=== PATIENT | female | born 1970 | race Caucasian/White ===

== ENCOUNTER 2020-08-15 10:14 | Outpatient (REF) | payer BC, SELFPAY | END 2020-08-15 10:15 | disposition home or self-care (01) | LOC: HO.LAB 10:14 | PROVIDERS: Visit Provider Internal Medicine | DX: Z20.828 Contact with and (suspected) exposure to other viral communicable diseases (principal) | CPT/HCPCS: C9803; U0003 ==

== ENCOUNTER 2021-05-04 10:22 | Outpatient (REF) | payer BC, SELFPAY ==
--- NOTE | ~2021-05-04 | US_ITS ---
EXAMINATION: ULTRASOUND EXTREMITY NONVASCULAR. CLINICAL INFORMATION: 4 x 2 cm mass times one year, status post fall down stairs. Question cysts versus tumor. COMPARISON: None TECHNIQUE: Limited imaging through the right upper buttock was performed. FINDINGS: There is a complex cystic but firm lesion overlying the right buttock approximately 1.09 cm deep to the skin and above the muscle fascia. It measures 3.07 x 5.28 x 1.67 cm and has internal echogenic strands. Due to chronicity this may represent an large granuloma, old hematoma or a complex lipoma. US/US extremity nonvascular IMPRESSION: Solid lesion right upper buttock as described above. Question old hematoma, granuloma or a complex lipoma. Simple fine-needle aspiration or biopsy can be performed by ultrasound.
== END 2021-05-04 10:23 | disposition home or self-care (01) ==
LOC: HO.HMGCX 10:22
PROVIDERS: PCP Internal Medicine; Visit Provider Registered Nurse
DX: R22.41 Localized swelling, mass and lump, right lower limb (principal)
CPT/HCPCS: 76882

== ENCOUNTER 2021-07-20 12:11 | Outpatient (REF) | payer BC, SELFPAY ==
--- NOTE | ~2021-07-20 | MM_ITS ---
EXAMINATION: MM SCREENING DIGITAL BREAST TOMOSYNTHESIS, BILATERAL CLINICAL INFORMATION: Screening. Asymptomatic. The lifetime risk of breast cancer based on the Tyrer-Cuzick Model is 7%. COMPARISON: Mammography: 05/09/2020, 05/07/2019, 05/05/2018 TECHNIQUE: Digital breast tomosynthesis is performed in both the craniocaudal and mediolateral oblique views along with computer-aided detection (CAD). Synthesized 2D images are generated from the tomosynthesis. FINDINGS: There are scattered areas of fibroglandular density (ACR BI-RADS breast composition Category b). There are no significant masses, abnormal calcifications, or other abnormalities. Parenchymal pattern is similar to prior study. No significant changes. MM/MM tomosynthesis screening BI IMPRESSION: No mammographic evidence of malignancy. ASSESSMENT: BI-RADS 1: Negative RECOMMENDATION: Routine annual mammography screening. This patient's information was entered into a reminder system with a target due date for their next mammogram.
== END 2021-07-20 12:12 | disposition home or self-care (01) ==
LOC: HO.MAMMO 12:11
PROVIDERS: PCP Internal Medicine; Visit Provider Internal Medicine
DX: Z12.13 Encounter for screening for malignant neoplasm of small intestine (principal)
CPT/HCPCS: 77063; 77067

== ENCOUNTER 2022-01-03 12:58 | Outpatient (REF) | payer BC, SELFPAY ==
--- NOTE | ~2022-01-03 | XR_ITS ---
EXAMINATION: XR SHOULDER, RIGHT CLINICAL INFORMATION: Pain and swelling right shoulder COMPARISON: Radiographs right shoulder 09/09/2019 TECHNIQUE: The right shoulder is imaged in 4 views. FINDINGS: There is bulky calcific tendinosis involving the distal superior rotator cuff, increased from prior exam 2019. The calcification measures approximately 6 mm in thickness, 2 cm across, and 2 cm AP dimension. There is no fracture, dislocation, or destructive process. The acromioclavicular alignment is normal. The glenohumeral joint appears normal. XR/XR shoulder RT min 2V IMPRESSION: Bulky calcific tendinosis distal superior rotator cuff.
== END 2022-01-03 12:59 | disposition home or self-care (01) ==
LOC: HO.HMGCX 12:58
PROVIDERS: PCP Internal Medicine; Visit Provider Internal Medicine
DX: M25.511 Pain in right shoulder (principal); M25.411 Effusion, right shoulder
CPT/HCPCS: 73030

== ENCOUNTER 2022-06-28 23:58 | Emergency (ER) | payer BC, SELFPAY ==
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
--- NOTE | ~2022-06-28 | CT_ITS ---
EXAMINATION: CT ABDOMEN AND PELVIS WITH CONTRAST CLINICAL INFORMATION: Right upper quadrant and right flank pain/tenderness. COMPARISON: Abdominal ultrasound dated from 05/19/2018. TECHNIQUE: Multidetector volumetric images were obtained from the superior aspect of the liver through the pubic symphysis following administration 85 mL of Omnipaque 350 intravenous contrast. Sagittal and coronal reformatted images were obtained on the technologist's workstation. Oral contrast: No This CT examination was performed using dose optimization techniques as appropriate, variously including the following: *Automated exposure control *Adjustment of mA and/or kV according to patient size (this includes techniques or standardized protocols for targeted exams where dose is matched to indication/reason for exam; i.e. extremities or head) *Use of iterative reconstruction technique DLP: 452 mGy-cm FINDINGS: LUNG BASES: No focal consolidation or pleural effusion. LIVER, GALLBLADDER, AND BILIARY TREE: The liver measures 16.2 cm craniocaudally and demonstrates normal attenuation and shape. There is a 2.7 cm enhancing lesion in the periphery of the right hepatic lobe (5:24), corresponding to a heterogeneously hyperechoic mass noted on an ultrasound from 05/19/2018. There is an additional very subtle enhancing observation in the right hepatic lobe measuring approximately 8 mm (5:14). There are couple of too small to characterize hypodensities, one demonstrating a peripheral enhancing nodule in the right hepatic dome (9:54). Normal gallbladder. No biliary ductal dilatation. PANCREAS: Unremarkable. SPLEEN: Unremarkable. ADRENAL GLANDS: Unremarkable. KIDNEYS AND URETERS: The kidneys are normal in size, shape, and attenuation. No hydronephrosis, hydroureter, or calculi seen. No perinephric stranding. BLADDER: Unremarkable. GASTROINTESTINAL TRACT: The small and large bowel are unremarkable. Normal appendix (5:63). ABDOMINAL WALL: Lower anterior abdominal wall fat stranding. There is a 4.1 cm fat-containing observation in the soft tissues of the right gluteal region, likely fat necrosis as sequela of prior trauma. LYMPH NODES: No lymphadenopathy by size criteria. VASCULAR: Mild atherosclerotic disease. Abdominal aorta is of normal diameter. The main portal vein is patent. PELVIC VISCERA: Very heterogeneous uterine myometrium with asymmetric bulging and distortion along the anterior surface of the uterine body (sagittal image 53, series 10). There is also some degree of heterogeneity and fullness in the cervix and vagina. A couple of low density lesions projecting over the cervix, largest measuring 1.4 cm, likely representing nabothian cysts. No free fluid. OSSEOUS STRUCTURES: No acute or aggressive-appearing osseous abnormalities. CT/CT abdomen pelvis w IV con IMPRESSION: Nonspecific heterogeneity of the uterus, cervix and vagina with bulging along the anterior uterine body. There is some degree of fat stranding adjacent to the anterior surface of the upper uterus and in the lower anterior abdominal wall. Findings are nonspecific, recommend clinical correlation. The heterogeneity of the uterus is likely in part explained by the presence of numerous fibroids. The distortion along the anterior surface and lower abdominal wall might be related with prior surgery. There are several enhancing and also hypoattenuating liver lesions, some of which are too small to characterize, largest lesion measures 2.7 cm corresponding to a heterogeneously hyperechoic observation noted in a prior ultrasound from 2018 and not convincingly changed. These likely correspond to a combination of cysts and hemangiomas, however further characterization with an elective abdominal MRI with and without intravenous contrast is recommended to ensure the benign nature of these lesions. This result was discussed with Leland Gannon MD at 06/29/2022 9:24 AM and it was ascertained that the content of the report was understood at the time of direct communication.
[2022-06-29 00:14] VITALS: BP 145/88; PULSE 108; O2SAT 98
[2022-06-29 00:44] VITALS: BP 137/92; PULSE 94; RESP 18; TEMP 36.8; O2SAT 98; BMI 24.5
[2022-06-29] MEDS: Acetaminophen 325 MG TABLET 650 MG PO ×2 (00:53→09:45)
--- NOTE | 2022-06-29 01:22 | PC.NURSE ---
RN cleansed posterior head lac with NS and dressed the area with a non-adherent gauze, covered with an ABD pad and wrapped in kerlex.
[2022-06-29 07:39] LABS: MANUAL DIFF FLAG NO
[2022-06-29 07:43] LABS: Basophils Percent Auto 0.4 % (0-2); Eosinophils Absolute Auto 0.1 X10*3/uL (0.0-0.4); Eosinophils Percent Auto 0.5 % (0-4); Hematocrit 43.1 % (37.0-47.0); Imm Gran Abs Auto 0.03 X10*3/uL (0.00-0.03); Imm Gran Pct Auto 0.3 % (0.0-0.4); Lymphocytes Absolute Auto 1.7 X10*3/uL (1.2-4.9); Lymphocytes Percent Auto 15.4 % (20-40); Mean Corpuscular HGB Conc 32.5 g/dl (31.0-35.0); Mean Corpuscular Hemoglobin 29.3 pg (27.0-33.0); Mean Corpuscular Volume 90.2 fL (80.0-98.0); Mean Platelet Volume 9.9 fL (9.4-12.3); Monocytes Absolute Auto 0.8 X10*3/uL (0.1-1.2); Monocytes Percent Auto 7.5 % (2-11); Neutrophils Absolute Auto 8.5 x10*3/uL (2.0-8.3); Neutrophils Percent Auto 75.9 % (45-73); Platelet Count 271 X10*3/uL (160-400); Red Blood Count 4.78 X10*6/uL (4.20-5.50); Red Cell Distribution Width 14.7 % (11.0-16.0); White Blood Count 11.2 X10*3/uL (4.8-10.8)
[2022-06-29 07:53] LABS: Appearance Urine Clear; Color Urine Yellow; Glucose Urine UA Negative (Negative); Leukocyte Esterase Urine Negative (Negative); Nitrite Urine Negative (Negative); PH 6.5 (5.0-9.0); UMIC TRIGGER UACC YES; Urine Blood Trace (Negative); Urine Ketones Negative (Negative); Urine Protein Negative (Neg-Trace)
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
[2022-06-29 07:58] LABS: Bacteria Urine None Seen (None Seen); Hyaline Casts Urine 0-2 /LPF (0-2); RBC Urine 0-2 /HPF (0-2); Squamous Epithelial Cell Urine 0-2 /HPF (0-2); WBC Urine 0-5 /HPF (0-5)
[2022-06-29 08:08] LABS: Alanine Aminotransferase 20 U/L (0-31); Albumin Level 5.3 g/dL (3.5-5.0); Alkaline Phosphatase 63 U/L (39-117); Anion Gap 22 (12-20); Aspartate Amino Transferase 33 U/L (5-31); Bilirubin Total 0.4 mg/dL (0.0-1.0); Blood Urea Nitrogen 9 mg/dL (9-16); Calcium 9.7 mg/dL (8.4-10.2); Carbon Dioxide 19 mmol/L (22-29); Chloride 104 mmol/L (96-108); Creatinine Clr Calc Pharmacy 82.5; Estimated Glomerular Filt Rate > 60; Glucose Random 83 mg/dL (60-115); Potassium 4.7 mmol/L (3.3-5.1); Sodium 140 mmol/L (135-145); Total Protein 8.4 g/dL (6.5-8.0)
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
[2022-06-29] MEDS: iohexoL 350 MG/ML 100 ML INFUS..BTL 85 ML IV (08:26)
[2022-06-29] MEDS: Lidocaine HCl 2%/Epi 1:100,000 20 ML VIAL INFILTRATI (09:45)
[2022-06-29] MEDS: ondansetron HCL 4 MG/2 ML VIAL IVPUSH (09:45)
== END 2022-06-29 11:50 | disposition home or self-care (01) ==
PROVIDERS: Emergency Provider Emergency Medicine; PCP Internal Medicine
DX: S01.01XA Laceration without foreign body of scalp, initial encounter (principal); S06.0X0A Concussion without loss of consciousness, initial encounter; S20.211A Contusion of right front wall of thorax, initial encounter; Y04.2XXA Assault by strike against or bumped into by another person, initial encounter; D25.9 Leiomyoma of uterus, unspecified; R10.11 Right upper quadrant pain; Y93.89 Activity, other specified; Y92.019 Unspecified place in single-family (private) house as the place of occurrence of the external cause; Y99.9 Unspecified external cause status
CPT/HCPCS: 12001; 36415; 70450; 74177; 80053; 81001; 85025; 96374; 99284; J2405; Q9967

== ENCOUNTER 2022-08-07 07:28 | Outpatient (REF) | payer BC, SELFPAY ==
--- NOTE | ~2022-08-07 | MM_ITS ---
EXAMINATION: MM SCREENING DIGITAL BREAST TOMOSYNTHESIS, BILATERAL CLINICAL INFORMATION: Screening. Asymptomatic. The lifetime risk of breast cancer based on the Tyrer-Cuzick Model is 7.1%. COMPARISON: Mammography: July 20, 2021 and studies dating back to March 07, 2016 TECHNIQUE: Digital breast tomosynthesis is performed in both the craniocaudal and mediolateral oblique views along with computer-aided detection (CAD). Synthesized 2D images are generated from the tomosynthesis. FINDINGS: The breasts are heterogeneously dense, which may obscure small masses (ACR BI-RADS breast composition Category c). There are no significant masses, abnormal calcifications, or other abnormalities. MM/MM tomosynthesis screening BI IMPRESSION: No significant changes from prior exam. ASSESSMENT: BI-RADS 1: Negative RECOMMENDATION: Routine annual mammography screening. This patient's information was entered into a reminder system with a target due date for their next mammogram.
== END 2022-08-07 07:29 | disposition home or self-care (01) ==
LOC: HO.MAMMO 07:28
PROVIDERS: Absent Provider Nurse Practitioner Adult Health; PCP Internal Medicine; Visit Provider Internal Medicine
DX: Z12.31 Encounter for screening mammogram for malignant neoplasm of breast (principal)
CPT/HCPCS: 77063; 77067

== ENCOUNTER → 2022-09-06 12:39 | Outpatient (BNVA) | payer BC, SELFPAY | PROVIDERS: PCP Internal Medicine; Visit Provider Physician Assistant | DX: M75.31 Calcific tendinitis of right shoulder (principal) | CPT/HCPCS: 20610; J1040 ==

== ENCOUNTER → 2023-01-04 10:41 | Outpatient (BNVA) | payer BC, SELFPAY | PROVIDERS: PCP Internal Medicine; Visit Provider Physician Assistant | DX: M75.31 Calcific tendinitis of right shoulder (principal) | CPT/HCPCS: 20610; J1040 ==

== ENCOUNTER 2023-02-04 14:54 | Outpatient (REF) | payer BC, SELFPAY ==
--- NOTE | ~2023-02-04 | MR_ITS ---
EXAMINATION: MR SHOULDER WITHOUT CONTRAST, RIGHT CLINICAL INFORMATION: Calcific tendinitis of the right shoulder. COMPARISON: Radiograph dated 01/03/2022. TECHNIQUE: MRI of the shoulder without contrast was performed on a high-field scanner. FINDINGS: ROTATOR CUFF: Within the supraspinatus and infraspinatus tendons, near the greater tuberosity insertion, there is an ill-defined and heterogeneous focus of low signal intensity measuring 2.4 x 1.5 x 0.5 cm, consistent with hydroxyapatite deposition disease (calcific tendinitis). There is rounded low signal intensity erosion at the greater tuberosity with surrounding edema signal, most consistent with intraosseous extension of the hydroxyapatite crystals. This focus measures 1 x 1.1 x 0.6 cm. No tendon tears. Mild tendinosis. Mild overlying subacromial subdeltoid bursitis. Subscapularis tendon is normal. No muscle atrophy or fatty infiltration. BICEPS: Normal. CORACOACROMIAL ARCH: The undersurface of the acromion is curved with no subacromial spur. 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 Trace subacromial subdeltoid bursitis. LABRUM/CAPSULE: Labrum is intact. No tears. Joint capsule is unremarkable. GLENOHUMERAL JOINT/MARROW: Normal. MR/MR shoulder RT wo con IMPRESSION: 1. A 2.4 cm focus of hydroxyapatite deposition disease (calcific tendinitis) at the supraspinatus and infraspinatus tendons with intraosseous extension into the greater tuberosity. Mild associated tendinosis and overlying subacromial subdeltoid bursitis. 2. 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
== END 2023-02-04 14:55 | disposition home or self-care (01) ==
LOC: HO.MRI 14:54
PROVIDERS: PCP Internal Medicine; Visit Provider Physician Assistant
DX: M75.31 Calcific tendinitis of right shoulder (principal)
CPT/HCPCS: 73221

== ENCOUNTER → 2023-02-28 13:14 | Outpatient (BNVA) | payer BC, SELFPAY | PROVIDERS: PCP Internal Medicine; Visit Provider Physician Assistant ==

== ENCOUNTER 2023-04-19 12:21 | Outpatient (AMB) | payer BC, SELFPAY ==
--- NOTE | 2023-04-19 12:25 | MHC.OFFVIS ---
Intake Vital Signs 04/19/23 12:29 Height 5 ft 1 in Weight 130 lb BMI 24.6 Intake Visit Reasons: Pre-Op RT SHL 04/24/23NE Intake Note: Marybeth is a 52 year old female who presents today for a pre op for her right shoulder , 04/24/23 NE. Allergies No Known Allergies Allergy (Verified 04/19/23 12:28) HPI Pre-Op RT SHL 04/24/23NE HPI Details 52-year-old right hand dominant female who presents in the office today for her preoperative history and physical exam prior to a right shoulder arthroscopy to be performed on 04/24/[address] Whiteside. Patient has no known allergy history. Patient is currently taking, as follows: -Atorvastatin 10 mg PO daily -Sertraline 75 mg PO daily Patient has a medical history, as follows: -Hypercholesterolemia Patient has no known surgical history. 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 Review of Systems Const All systems reviewed & are unremarkable except as noted in HPI and below Physical Exam Vital Signs: BMI result Body Mass Index 24.6 Const General: cooperative and no acute distress Orientation/consciousness: patient oriented x3 Neck Neck: Yes normal visual inspection and Yes no lymphadenopathy Resp Effort & Inspection: normal respiratory effort and able to speak in complete sentences Cardio Rate: regular rate Peripheral pulses: Peripheral pulses 2+ throughout GI Inspection: Yes normal to inspection Palpation (GI): Soft to palpation Skin General skin exam: no rashes or lesions noted Lesions: no lesions Rashes: no rashes Neuro General: patient oriented x3 Extrem Other: Right shoulder: Normal to inspection. No ecchymosis, erythema, or edema. Full shoulder ROM in all planes with pain while reaching above the head. Negative cross-body reach. 3/5 strength with empty can. Negative drop arm. NVI. Psych Mental Status: mental status grossly normal Assessment & Plan Assessment & Plan (1) Calcific tendonitis of right shoulder: Code(s): M75.31 - Calcific tendinitis of right shoulder Plan Ms. Fitzell is a 52-year-old right hand dominant female who presents in the office today for her preoperative history and physical exam prior to a right shoulder arthroscopy to be performed on 04/24/[address] Whiteside. Patient has no known allergy history. Patient is currently taking, as follows: -Atorvastatin 10 mg PO daily -Sertraline 75 mg PO daily Patient has a medical history, as follows: -Hypercholesterolemia Patient has no known surgical history. I discussed in detail the procedure and what to expect pre and post operatively. We discussed the risks, benefits and alternatives to the surgery as well as the rehabilitation course. The risks; which include, but are not limited to infection, bleeding, nerve injury, ongoing pain, swelling, and stiffness, perioperative risk of injury to bones and soft tissues, and blood clots. I have answered all questions and with their understanding they have consented to move forward with a right shoulder arthroscopy to be performed on 04/24/[address] Basil Whiteside. Follow up will be at the post operative appointment on 04/29/2023 at 11:15 am, or sooner if needed. Patient Instructions: Scribed for Estrella Smith PA-C by Roxanna Tolbert certified medical technician assistant, on 04/19/2023 at 12:22 pm, EST. Your attestation Coding Level of Care Code Global (90535) Diagnoses Calcific tendonitis of right shoulder M75.31
[2023-04-19 12:29] VITALS: BMI 24.6
== END 2023-04-19 13:22 | disposition home or self-care (01) ==
PROVIDERS: PCP Internal Medicine; Visit Provider Physician Assistant
DX: M75.31 Calcific tendinitis of right shoulder (principal)
CPT/HCPCS: 99213

== ENCOUNTER → 2023-04-19 12:21 | Outpatient (BNVA) | payer BC, SELFPAY | PROVIDERS: PCP Internal Medicine; Visit Provider Physician Assistant ==

== ENCOUNTER 2023-04-24 07:30 | Day surgery (SDC) | payer BC, SELFPAY ==
[2023-04-19 15:11] VITALS: BMI 24.6
--- NOTE | 2023-04-23 09:16 | HO.ANESPROP2 ---
Documented by User: Abbi Mercado NP 04/23/23 09:16 HPI - Anesthesia Eval Consult details Narrative: 52yo F for Right Shoulder Arthroscopy with poss rotator cuff repair excision of calcium [facility] Active Problems Active Problems: All Active Problems (Updated 02/28/23 @ 13:17 by Nithin Allen) Calcific tendonitis of right shoulder (Acute) Past Medical History Medical History History of high cholesterol Social History Social History Alcohol intake: never Patient Tobacco Use Status: Never used Tobacco Are you DNR?: No Advance Directives: No Advance Directives Information Provided: Yes Current occupational status: employed 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 Meds Allergies Allergy/AdvReac Type Severity Reaction Status Date / Time No Known Allergies Allergy Verified 04/19/23 12:28 Home Medications Medication Instructions Recorded Confirmed Last Taken Type sertraline 50 mg tablet 75 mg PO DAILY 07/06/22 Unknown History atorvastatin 10 mg tablet 10 mg PO DAILY 09/06/22 Unknown History fluoxetine 10 mg capsule 20 mg PO DAILY 04/24/23 04/24/23 04/24/23 06:30 History Exam Exam Date and Time: April 23, 2023 0916 Height,Weight and Vital Signs: Height 5 ft 1 in Weight 58.967 kg Assessment and Plan Assessment Anesthesia Assessment: Chart Reviewed Documented by User: Nelson Martinez MD 04/24/23 08:36 [facility] Past Medical History Medical History History of high cholesterol Family History Family history of problems with anesthesia: No Surgical History History of Problems with Anesthesia: No Social History Social History Alcohol intake: never Patient Tobacco Use Status: Never used Tobacco Are you DNR?: No Advance Directives: No Advance Directives Information Provided: Yes Current occupational status: employed 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 Meds Allergies Allergy/AdvReac Type Severity Reaction Status Date / Time No Known Allergies Allergy Verified 04/19/23 12:28 Home Medications Medication Instructions Recorded Confirmed Last Taken Type sertraline 50 mg tablet 75 mg PO DAILY 07/06/22 Unknown History atorvastatin 10 mg tablet 10 mg PO DAILY 09/06/22 Unknown History fluoxetine 10 mg capsule 20 mg PO DAILY 04/24/23 04/24/23 04/24/23 06:30 History Exam Airway Mallampati Class: II TM Dist: >3cm Neck ROM: Full Heart: rrr Lungs: cta Assessment and Plan Assessment Anesthesia Assessment: Anesthesia Plan Discussed Final Anesthetic Review Family History of Problems with Anesthesia: No History of Problems with Anesthesia: No NPO: Yes ASA Class: II Patient Risk: Low Procedure Risk: Intermediate Anesthetic Plan Anesthetic Plan: GA and Regional Block Disposition: Standard PACU
[2023-04-24 08:10] VITALS: BMI 25.5
[2023-04-24 08:15] VITALS: BP 146/86; PULSE 77; RESP 16; TEMP 36.8; O2SAT 98
[2023-04-24] MEDS: Lactated Ringers 1,000 ML 100 ML IVCONT (08:18)
--- NOTE | 2023-04-24 09:16 | MHC.SHP ---
Pre-Procedural Eval Section A Date of Service: 04/24/23 The patient is an INPATIENT: No Changes since office visit: No Cold of Flu in the past 2 weeks, No New Medical Problems, No Changes in Medication and No Patient answered all questions The History & Physical has been completed within 30 days and I have reviewed it.: Yes Section B Chief Complaint: Calcific tendinitis of right shoulder Allergies: Allergies Allergy/AdvReac Type Severity Reaction Status Date / Time No Known Allergies Allergy Verified 04/19/23 12:28 Plan I have reviewed the history and physical and performed a pertinent physical examination on my patient. No changes have occurred unless specified. Time Spent With Patient Time: Total time managing care of this patient today ____ minutes.
--- NOTE | 2023-04-24 11:42 | P.BOP_ITS ---
Brief Operative Note Date of Service: 04/24/23 Pre-op diagnosis: Right rotator cuff calcific tendinitis Post-op diagnosis: other (Hydroxyapatite disease, right rtc) Procedure: Removal of hydroxyapatite and rotator cuff repair right shoulder Implants: Garcia and nephew helacoil x3 Surgeon: Basil Whiteside MD Anesthesia: GETA and regional Was an Elementary Classroom Teacher used for this Procedure?: Yes Elementary Classroom Teacher: Estrella Smith Estimated blood loss (mL): 25 IV fluids (mL): 1,000 Pathology: none sent Condition: stable Disposition: PACU
[2023-04-24 11:43] VITALS: BP 143/80; PULSE 87; RESP 16; TEMP 36.6; O2SAT 95
[2023-04-24 11:48] VITALS: BP 150/81; PULSE 77; RESP 16; O2SAT 94
[2023-04-24 11:53] VITALS: BP 143/80; PULSE 75; RESP 16; O2SAT 95
[2023-04-24 11:58] VITALS: BP 140/82; PULSE 75; RESP 16; O2SAT 95
[2023-04-24 12:13] VITALS: BP 135/81; PULSE 72; RESP 16; TEMP 36.8; O2SAT 96
--- NOTE | 2023-04-26 15:29 | W.PM.OPN ---
Operative Note Operative Note Date of Service: 04/24/23 Narrative: Date of Service: 04/24/23 Pre-op diagnosis: Right rotator cuff calcific tendinitis Post-op diagnosis: other (Hydroxyapatite disease, right rtc) Procedure: Removal of hydroxyapatite and rotator cuff repair right shoulder Implants: Garcia and nephew helacoil x3 Surgeon: Basil Whiteside MD Anesthesia: GETA and regional Was an Athletic Equipment Custodian used for this Procedure?: Yes Athletic Equipment Custodian: Estrella Smith Estimated blood loss (mL): 25 IV fluids (mL): 1,000 Pathology: none sent Condition: stable Disposition: PACU Procedure in detail: Patient was brought to the operating room and placed the the beach chair position. All bony prominences were well padded and the limb was prepped and draped in standard sterile fashion. A time out was called to identify proper site, proper procedure and proper surgeon. IV antibiotics per weight were administered. I began by making a posterolateral stab incision with a 15 blade. A blunt trochar was placed into the glenohumeral joint and I insufflated the joint with saline and a 30 degree arthroscope was placed. I established an outside- in anterior portal just distal to the biceps tendon. I then began my inspection of the glenohumeral joint. the glenoid of humeral articular surfaces were intact and pristine. Biceps tendon and labrum were intact. There was some mild anterior interval synovitis which was debrided with the shaver and the subscapularis was intact. There was undersurface fraying of the junction at the infra and supraspinatus. I then removed the trochar and entered the subacromial space. A direct lateral portal was then established and I performed a bursectomy. The cuff was then examined. There was a palpable hard mass at the anterior portion of the infraspinatus. This was probed and debrided and I began to piecemeal remove the hydroxyapatite but this soon led to a appreciation of high-grade partial-thickness rotator cuff tear. I then fully debrided this and identified all remaining hydroxyapatite. There was a large foci of hydroxyapatite and the greater tuberosity at the bare area. This was debrided down to normal appearing bone. I then placed 1 medial double loaded suture anchor and brought this through the cuff. Two lateral helical oil knotless sutures were then placed and 2 limbs in addition to 1 looped suture were brought to each of the 2 anchors. This compressed the rotator cuff down to the debrided bare area reproducing the normal anatomy. I was satisfied with the repair. Final images were captured and I removed all instrumentation. Portals were closed with nylon. Patient was placed in an abduction sling, extubated and brought to the recovery room in stable condition. There were no known complications.
== END 2023-04-24 12:44 | disposition home or self-care (01) ==
PROVIDERS: PCP Internal Medicine; Visit Provider Orthopaedic Surgery
PROC: (CPT 29805; principal; 2023-04-24 09:40)
DX: M75.31 Calcific tendinitis of right shoulder (principal); M11.011 Hydroxyapatite deposition disease, right shoulder; M75.101 Unspecified rotator cuff tear or rupture of right shoulder, not specified as traumatic
CPT/HCPCS: 29827; 29822; C1713; J0131; J0171; J0690; J1100; J1885; J2370; J2371; J2405; J2795

== ENCOUNTER → 2023-04-24 07:30 | Outpatient (BNV) | payer BC, SELFPAY | PROVIDERS: PCP Internal Medicine; Visit Provider Orthopaedic Surgery | DX: M75.121 Complete rotator cuff tear or rupture of right shoulder, not specified as traumatic (principal); M75.31 Calcific tendinitis of right shoulder; M11.011 Hydroxyapatite deposition disease, right shoulder | CPT/HCPCS: 29822; 29826; 29827 ==

== ENCOUNTER 2023-04-29 14:17 | Outpatient (AMB) | payer BC, SELFPAY ==
--- NOTE | 2023-04-29 14:27 | A.OFFVIS_ITS ---
Intake Vital Signs 04/29/23 14:34 Height 5 ft 1 in Weight 135 lb BMI 25.5 Intake Visit Reasons: PO RT SHLD pss. RTC 04/24/23NE Intake Note: Marybeth 52 yr old female presents today for her P/O right shoulder RTC repair from 04/24/23. Patient states she is doing well, denies numbness and tingling. Allergies No Known Allergies Allergy (Verified 04/29/23 14:33) HPI PO RT SHLD pss. RTC 04/24/23NE HPI Details 52-year-old right hand dominant female who presents in the office today 5 days status post right shoulder rotator cuff repair and removal of hydroxyapatite, which was performed on 04/24/[address] Whiteside. The patient reports she has been doing well. She denies numbness or tingling. 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 No signs of infection. Forward flexion and abduction to 45 degrees. External rotation to neutral. NVI. Psych Mental Status: mental status grossly normal Assessment & Plan Assessment & Plan (1) Calcific tendonitis of right shoulder: Code(s): M75.31 - Calcific tendinitis of right shoulder Plan Ms. Thibodeaux is a 52-year-old right hand dominant female who presents in the office today 5 days status post right shoulder rotator cuff repair and removal of hydroxyapatite, which was performed on 04/24/[address] Whiteside. The patient reports she has been doing well. She denies numbness or tingling. Suture were removed and steri-stripes were applied. She will continue to work with physical therapy. She will remain in the sling. She was given a smaller sling in exchange, off the shelf, while in the office today due to the currently sling being to large. Follow up will be in 4 weeks, or sooner if needed. Patient Instructions: Scribed for Estrella Smith PA-C by Roxanna Tolbert medical device assembler, on 04/29/2023 at 2:36 pm, EST. Your attestation Coding Level of Care Code Global (49508) Diagnoses Calcific tendonitis of right shoulder M75.31
[2023-04-29 14:34] VITALS: BMI 25.5
== END 2023-04-29 15:13 | disposition home or self-care (01) ==
PROVIDERS: Visit Provider Physician Assistant
DX: M75.31 Calcific tendinitis of right shoulder (principal)
CPT/HCPCS: 99024

== ENCOUNTER → 2023-04-29 14:17 | Outpatient (BNVA) | payer BC, SELFPAY | PROVIDERS: Visit Provider Physician Assistant ==

== ENCOUNTER 2023-06-03 10:12 | Outpatient (AMB) | payer BC, SELFPAY ==
[2023-06-03 10:14] VITALS: BMI 25.5
--- NOTE | 2023-06-03 10:14 | A.OFFVIS_ITS ---
Intake Vital Signs 06/03/23 10:14 Height 5 ft 1 in Weight 135 lb BMI 25.5 Intake Visit Reasons: PO RT SHLD pss. RTC 04/24/23NE Intake Note: Marybeth is a 52 year old right hand dominant female who presents today for a post operative appointment s/p right RTC repair 04/24/23. Patient reports that she is doing well with no concerns. She is still working with physical therapy which is going well. Allergies No Known Allergies Allergy (Verified 04/29/23 14:33) HPI PO RT SHLD pss. RTC 04/24/23NE HPI Details Marybeth is a 52 year old woman who presents ~6 weeks S/P right RTC repair. Agustina-operative findings were consistent with Hydroxyapatite disease. She says she is doing well, with no complaints. She continues to work with PT which she finds helpful. She says some motions & activities she has done cause her sharp pain and she is careful to avoid these motions again. She says her shoulder looks a little dented and she had questions about this. 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 Review of Systems Const All systems reviewed & are unremarkable except as noted in HPI and below Physical Exam Vital Signs: BMI result Body Mass Index 25.5 Const General: no acute distress, alert and awake Orientation/consciousness: patient oriented x3 HEENT Head: Yes normocephalic and Yes atraumatic Eyes EOM: EOMs intact bilaterally Resp Effort & Inspection: normal respiratory effort and able to speak in complete sentences Cardio Jugular venous distension: no JVD Skin General skin exam: turgor normal Rashes: no rashes Neuro General: patient oriented x3 Extrem Other: Right Shoulder: Incision C/D/I 90 degrees AB 100 degrees FF Psych Appearance: grossly normal Affect: normal affect Attitude: cooperative Assessment & Plan Assessment & Plan (1) Status post right rotator cuff repair: Code(s): Z98.890 - Other specified postprocedural states Plan: This is a 52 year old woman S/P right RTC repair, DOS: 04/24/23. She is doing well, within expectation, and is happy with the results of her surgery. She has been attending PT which she feels is going well. I recommend she continue with PT and she limit or avoid any overhead activity or heavy lifting. 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 She will follow up in 6 weeks. (2) Hydroxyapatite deposition disease, right shoulder: Code(s): M11.011 - Hydroxyapatite deposition disease, right shoulder Plan Scribed for Basil Whiteside MD by Yevgeniy Golden, medical representative, on 06/03/23 at 10:25 AM, EST. Coding Level of Care Code Global (18075) Diagnoses Status post right rotator cuff repair Z98.890 Hydroxyapatite deposition disease, right shoulder M11.011
== END 2023-06-03 10:37 | disposition home or self-care (01) ==
PROVIDERS: PCP Internal Medicine; Visit Provider Orthopaedic Surgery
DX: Z98.890 Other specified postprocedural states (principal); M11.011 Hydroxyapatite deposition disease, right shoulder
CPT/HCPCS: 99024

== ENCOUNTER → 2023-06-03 10:12 | Outpatient (BNVA) | payer BC, SELFPAY | PROVIDERS: PCP Internal Medicine; Visit Provider Orthopaedic Surgery ==

== ENCOUNTER 2023-06-03 13:00 | Outpatient (RCR) | payer BC, SELFPAY ==
--- NOTE | 2023-05-03 13:48 | MHC.PT.EP ---
[facility] [place] [facility] [place] [facility] [place] [facility] [address] Eliana Pan [address] [phone] F: [phone] F: [phone] F: [phone] F: [phone] Physical Therapy Plan of Care Date of Evaluation: Date of Surgery: 04/24/23 Diagnosis: R RTC Repair Assessment: 52 y/o R-hand dominant female s/p RTC repair 04/24/23. 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 Examination shows decreased shoulder ROM, decreased strength (not formally tested), increased pain and tendeness, and impaired postural awareness. Educated pt re RTC surgical precautions, no lifting/carrying with R UE, wearing sling at all time, not extending shoulder, and use of ice for pain/inflammation. Recommend PT 2x/week for 12 weeks to address impairments, implement HEP, and optimize functional mobility. Frequency and Duration: The patient will be seen 2x/week for 12 weeks Short Term Goals: 6 weeks Compliant with HEP Improve R shoulder AAROM flexion to 150 to faciliate reaching Alf Goals: 12 weeks I with HEP and self management of sx Demonstrate R shoulder AROM WFL all directions to facilitate reaching overhead Pt will demonstrate 4/5 strength R shoulder to faciliate carrying Improve SPADI to 65/130 Treatment Plan: Modalities to reduce pain, spasms and effusion. Manual therapy to restore motion and function. Therapeutic exercise to improve strength and flexibility. Neuromuscular re-education for posture and balance. Therapeutic activities to return to functional activities of daily living. Electronically signed by: Juju Barrera PT Please sign and return to therapist. Thank you for your referral.
--- NOTE | 2023-07-18 08:36 | MHC.PT.DC ---
[facility] [place] [facility] [place] [facility] [place] [facility] [address] Eliana Pan [address] [phone] F: [phone] F: [phone] F: [phone] F: [phone] Physical Therapy Discharge Report Diagnosis: R RTC Repair Date of Surgery: 04/24/23 Date of Evaluation: 05/03/23 Date of Discharge: 07/18/23 Treatments to Date: 6 Cancellations to Date: 0 No Shows to Date: 0 Discharge Status: Independent with HEP Patient Elected to Stop Discharge Summary: Pt did not f/u with further PT following d/c of sling. She had good AAROM however strength training was never initiated d/t surgical healing timeline. D/c at this time as it has been > 30 days since last visit. A Electronically signed by: Juju Barrera PT Please sign and return to therapist. Thank you for your referral.
== END 2023-07-18 08:37 | disposition home or self-care (01) ==
LOC: HO.PTCHIC 13:00
PROVIDERS: PCP Internal Medicine; Visit Provider Orthopaedic Surgery
DX: M75.31 Calcific tendinitis of right shoulder (principal); Z98.890 Other specified postprocedural states
CPT/HCPCS: 97110; 97140; 97161

== ENCOUNTER 2023-07-11 12:12 | Outpatient (AMB) | payer BC, SELFPAY ==
--- NOTE | 2023-07-11 12:13 | MHC.OFFVIS ---
Intake Intake Visit Reasons: PO-RT Shoulder RTC repair 04/24/23NE Intake Note: Marybeth is a 52 year old right hand dominant female who presents today for a post operative appointment s/p right RTC repair 04/24/23. She reports minimal pain and states she finished physical therapy. Allergies No Known Allergies Allergy (Verified 07/11/23 12:16) Medication List - Last Reconciled 07/11/23 by Deloris Fernandez RN atorvastatin 10 mg PO DAILY fluoxetine 20 mg PO DAILY HPI PO-RT Shoulder RTC repair 04/24/23NE HPI Details Marybeth is a 52 year old woman who presents ~10 weeks S/P right RTC repair. Agustina-operative findings were consistent with Hydroxyapatite disease. She says she is doing well, with no complaints. She says her pain is minimal and she has completed all her PT. She has a mild hitch in her shoulder motion which began recently, but says this is not painful. 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 Review of Systems Const All systems reviewed & are unremarkable except as noted in HPI and below Physical Exam Const General: no acute distress, alert and awake Orientation/consciousness: patient oriented x3 HEENT Head: Yes normocephalic and Yes atraumatic Eyes EOM: EOMs intact bilaterally Resp Effort & Inspection: normal respiratory effort and able to speak in complete sentences Cardio Jugular venous distension: no JVD Skin General skin exam: turgor normal Rashes: no rashes Neuro General: patient oriented x3 Extrem Other: Right Shoulder: Well-healed incision 90 degrees AB 100 degrees FF Psych Appearance: grossly normal Affect: normal affect Attitude: cooperative Assessment & Plan Assessment & Plan (1) Status post right rotator cuff repair: Code(s): Z98.890 - Other specified postprocedural states Plan: This is a 52 year old woman S/P right RTC repair, DOS: 04/24/23. She is doing well, within expectation, and is happy with the results of her surgery. She denies any pain and has completed her course of PT. She will continue to limit or avoid any overhead activity or heavy lifting for the next few weeks. She can follow up if needed and I explained that complete recovery can take 9-12 months. (2) Hydroxyapatite deposition disease, right shoulder: Code(s): M11.011 - Hydroxyapatite deposition disease, right shoulder Plan Scribed for Basil Whiteside MD by Yevgeniy Golden, medical cash poster, on 07/11/23 at 12:30 PM, EST. Coding Level of Care Code Global (44187) Diagnoses Status post right rotator cuff repair Z98.890 Hydroxyapatite deposition disease, right shoulder M11.011
== END 2023-07-11 12:45 | disposition home or self-care (01) ==
PROVIDERS: PCP Internal Medicine; Visit Provider Orthopaedic Surgery
DX: Z98.890 Other specified postprocedural states (principal); M11.011 Hydroxyapatite deposition disease, right shoulder
CPT/HCPCS: 99024

== ENCOUNTER → 2023-07-11 12:12 | Outpatient (BNVA) | payer BC, SELFPAY | PROVIDERS: PCP Internal Medicine; Visit Provider Orthopaedic Surgery ==

== ENCOUNTER 2023-08-13 07:17 | Outpatient (REF) | payer BC, SELFPAY | END 2023-08-13 07:18 | disposition home or self-care (01) | LOC: HO.MAMMO 07:17 | PROVIDERS: PCP Internal Medicine; Visit Provider Internal Medicine | DX: Z12.31 Encounter for screening mammogram for malignant neoplasm of breast (principal) | CPT/HCPCS: 77063; 77067 ==

== ENCOUNTER → 2023-08-13 07:30 | Outpatient (BNV) | payer BC, SELFPAY | PROVIDERS: PCP Internal Medicine; Visit Provider Radiology Diagnostic Radiology | DX: Z12.31 Encounter for screening mammogram for malignant neoplasm of breast (principal) | CPT/HCPCS: 77063; 77067 ==